=== PATIENT | female | born 1940 | race Caucasian/White ===

== ENCOUNTER 2022-03-01 17:48 | Emergency (ER) | payer OTHER ==
[2022-03-01 17:57] VITALS: BP 160/94; PULSE 85; TEMP 98.1; BMI 27.1
[2022-03-01 18:57] LABS: HEMATOCRIT 38.1 % (32.4-45.2); HEMOGLOBIN 13.4 G/dL (10.7-15.3); MCH 32.8 pg (25.7-33.7); MEAN CELL VOLUME 93.7 fl (80-96); MEAN PLT VOLUME 8.3 fl (7.5-11.1); PLATELET COUNT 276.1 10^3/uL (134-434); RBC 4.07 10^6/uL (3.60-5.2); RDW 14.9 % (11.6-15.6); WHITE BLOOD COUNT 7.5 10^3/uL (4.0-10.8)
[2022-03-01 19:06] LABS: ALBUMIN 3.7 g/dl (3.4-5.0); BILIRUBIN,TOTAL 0.6 mg/dl (0.2-1); CALCIUM 9.6 mg/dl (8.5-10); CREATININE 0.9 mg/dl (0.55-1.3); TOT PROT 7.5 g/dl (6.4-8.2)
[2022-03-01 19:33] LABS: EPITHELIAL CELLS MODERATE /hpf
== END 2022-03-01 21:02 | disposition home or self-care (01) ==
LOC: FER 17:48
DX: S09.90XA Unspecified injury of head, initial encounter (principal); S60.221A Contusion of right hand, initial encounter
CPT/HCPCS: 36415; 70450-TC; 72125-TC; 73110-TC-RT-FY; 73130-TC-RT-FY; 80053; 81003; 81015; 85027; 87086; 93005; 99284-25

== ENCOUNTER 2022-04-21 17:22 | Emergency (ER) | payer OTHER ==
[2022-04-21 17:42] VITALS: TEMP 98.8; BMI 28.0
[2022-04-21 18:13] LABS: HEMATOCRIT 38.2 % (32.4-45.2); HEMOGLOBIN 13.3 G/dL (10.7-15.3); MCH 33.2 pg (25.7-33.7); MCHC 34.9 g/dl (32.0-36.0); MEAN CELL VOLUME 95.1 fl (80-96); PLATELET COUNT 303.5 10^3/uL (134-434); RBC 4.02 10^6/uL (3.60-5.2); RDW 14.9 % (11.6-15.6); WHITE BLOOD COUNT 11.9 10^3/uL (4.0-10.8)
[2022-04-21 18:18] LABS: PLATELET ESTIMATE ADEQUATE
[2022-04-21 18:38] LABS: ACTIVATED PTT 23.6 SECONDS (25.2-36.5); INR 1.03 (0.83-1.09); PROTHROMBIN TIME (PATIENT) 11.9 SEC (9.7-13.0)
[2022-04-21 18:44] LABS: ALBUMIN 3.6 g/dl (3.4-5.0); BILIRUBIN,TOTAL 0.5 mg/dl (0.2-1); CALCIUM 9.7 mg/dl (8.5-10); CREATININE 0.9 mg/dl (0.55-1.3); TOT PROT 7.2 g/dl (6.4-8.2)
[2022-04-21 22:21] VITALS: BP 162/83; PULSE 88
[2022-04-21 22:57] LABS: N-TERMINAL BNP 210.4 pg/ml (5-450)
== END 2022-04-21 22:31 | disposition home or self-care (01) ==
LOC: FER 17:22
DX: U07.1 COVID-19 (principal)
CPT/HCPCS: 36415; 71045-TC-FY; 71275-TC; 80053; 83880; 84484; 85025; 85610; 85730; 93005; 99285-25; C9803-CS; U0003; U0005

== ENCOUNTER 2022-04-22 11:00 | Emergency (ER) | payer OTHER ==
[2022-04-22 11:09] VITALS: BP 137/63; PULSE 77; TEMP 98.2; BMI 26.2
[2022-04-22] MEDS ORDERED: BEBTELOVIMAB (EUA) 175 MG/2 ML VIAL IVPUSH ONE (11:55)
== END 2022-04-22 14:15 | disposition home or self-care (01) ==
LOC: JCOVINFU 11:00
DX: U07.1 COVID-19 (principal)
CPT/HCPCS: 96374; 99284-25; M0222; Q0222